=== PATIENT | female | born 1995 | race Caucasian/White ===

== ENCOUNTER 2018-06-24 13:55 | Emergency (ER) | payer SELFPAY ==
[~2018-06-24] VITALS: Ht 154.9 cm; Wt 59.0 kg
[2018-06-24 14:53] LABS: BASOPHILS % 0.6 % (0.0-2.0); EOSINOPHILS % 0.9 % (0.0-5.0); HEMOGLOBIN. 11.9 g/dL (12.0-16.0); LYMPHOCYTES % 28.3 % (20.0-50.0); MEAN CORPUSCULAR HEMOGLOBIN 31.6 pg (28.0-32.0); MEAN CORPUSCULAR VOLUME 90.1 fL (81.0-99.0); MONOCYTES % 7.3 % (2.0-8.0); NEUTROPHILS % 62.9 % (40.0-76.0); PLATELET 269 x1000/uL (130-400); RED BLOOD CELL COUNT 3.77 mill/uL (4.2-5.4); RED CELL DISTRIBUTION WIDTH 13.6 % (11.6-14.6)
[2018-06-24 15:00] LABS: CHLORIDE 103 mEq/L (98-107)
[2018-06-24 15:32] LABS: B-HCG QUANTITATIVE 25709 mIU/mL (<3)
[2018-06-24 15:57] LABS: COLOR URINE YELLOW (YELLOW); KETONES URINE NEGATIVE (NEGATIVE); LEUKOCYTE ESTERASE URINE 1+ (NEGATIVE); NITRITE URINE NEGATIVE (NEGATIVE); OCCULT BLOOD URINE NEGATIVE (NEGATIVE); PROTEIN URINE NEGATIVE (NEGATIVE); SPECIFIC GRAVITY URINE 1.005 (1.005-1.030)
[2018-06-24 16:04] LABS: CLARITY URINE HAZY (CLEAR)
[2018-06-24 17:53] VITALS: BP 124/68
== END 2018-06-24 18:24 | disposition home or self-care (01) ==
LOC: ER 13:55
DX: O23.42 Unspecified infection of urinary tract in pregnancy, second trimester (principal); O99.512 Diseases of the respiratory system complicating pregnancy, second trimester; R05 Cough; Z3A.14 14 weeks gestation of pregnancy
CPT/HCPCS: 36415; 76801; 80053; 81003; 81025; 84702; 85025; 86850; 86900; 86901; 99285; Z7610

== ENCOUNTER 2019-11-20 10:15 | Emergency (ER) | payer SELFPAY ==
[~2019-11-20] VITALS: Ht 154.9 cm; Wt 57.0 kg
[2019-11-20 10:22] VITALS: BP 135/81
[2019-11-20] MEDS ORDERED: HYDROCORTISONE 1% OINT 28.35GM TOP SCH ×2 (11:30→14:00)
[2019-11-20] MEDS ORDERED: DIPHENHYDRAMINE 25MG CAPSULE PO ONE (11:30)
[2019-11-20] MEDS ORDERED: PREDNISONE 20MG TABLET PO ONE (11:30)
[2019-11-20] MEDS ORDERED: HYDROCORTISONE 1% CREAM 30GM TOP SCH (11:36)
== END 2019-11-20 11:44 | disposition home or self-care (01) ==
LOC: ER 10:15
DX: T78.40XA Allergy, unspecified, initial encounter (principal); X58.XXXA Exposure to other specified factors, initial encounter
CPT/HCPCS: 99284; J7512; Q0163

== ENCOUNTER 2020-08-07 11:11 | Emergency (ER) | payer MEDICAID ==
[~2020-08-07] VITALS: Ht 165.1 cm; Wt 59.0 kg
[2020-08-07] MEDS ORDERED: SODIUM CHLORIDE 0.9% 1,000 ML IV ONE (12:43)
[2020-08-07] MEDS ORDERED: PROCHLORPERAZINE 10MG/2ML VIAL IV STA (12:43)
[2020-08-07] MEDS ORDERED: DIPHENHYDRAMINE 50MG/ML VIAL IV ONE (12:45)
[2020-08-07 15:47] VITALS: BP 116/87
== END 2020-08-07 15:49 | disposition home or self-care (01) ==
LOC: ER 11:53
DX: G43.909 Migraine, unspecified, not intractable, without status migrainosus (principal)
CPT/HCPCS: 96361; 96374; 96375; 99284; J0780; J1200; J7030

== ENCOUNTER 2022-07-10 14:53 | Emergency (ER) | payer MEDICAID ==
[~2022-07-10] VITALS: Ht 154.9 cm; Wt 64.0 kg
[2022-07-10] MEDS ORDERED: IBUPROFEN 400MG TABLET PO ONE (20:15)
[2022-07-10] MEDS ORDERED: ACETAMINOPHEN 325MG TABLET PO ONE (20:15)
[2022-07-10 20:18] LABS: BASOPHILS % 0.7 % (0.0-2.0); EOSINOPHILS % 0.5 % (0.0-5.0); HEMATOCRIT. 40.2 % (36.0-48.0); HEMOGLOBIN. 13.6 g/dL (12.0-16.0); MEAN CORPUSCULAR HEMOGLOBIN 30.6 pg (28.0-32.0); MEAN PLATELET VOLUME 7.9 fl (7.4-10.4); MONOCYTES % 8.4 % (2.0-8.0); NEUTROPHILS % 74.4 % (40.0-76.0); PLATELET 319 x1000/uL (130-400); RED BLOOD CELL COUNT 4.46 mill/uL (4.2-5.4)
[2022-07-10 20:23] LABS: CHLORIDE 103 mEq/L (98-107)
[2022-07-10 20:25] LABS: HCG SCREEN NEGATIVE
[2022-07-10 22:30] VITALS: BP 122/78
== END 2022-07-10 22:30 | disposition home or self-care (01) ==
LOC: ER 14:53
DX: R10.11 Right upper quadrant pain (principal)
CPT/HCPCS: 36415; 71045; 76705; 80053; 81025; 84703; 85025; 99285